=== PATIENT | male | born 1965 | race Caucasian/White ===

== ENCOUNTER → 2018-03-27 16:02 | Outpatient (CLI) | payer OTHER, SELFPAY ==
[2018-03-27 16:34] LABS: Add Manual Diff / Slide Review NO; Basophils Percent Auto 0.5 % (0-2); Eosinophils Percent Auto 0.6 % (2-4); Hematocrit 46.7 % (41-53); Hemoglobin 16.2 g/dL (13.5-17.5); Lymphocytes Percent Auto 39.7 % (25-40); Mean Corpuscular HGB Conc 34.7 % (30-36); Mean Corpuscular Hemoglobin 30.1 PG (26-34); Mean Corpuscular Volume 86.8 fL (80-100); Monocytes Percent Auto 6.6 % (3-14); Neutrophils Absolute Auto 2600 /uL (3000-5900); Neutrophils Percent Auto 52.6 % (50-75); Platelet Count 148 X10^3/uL (150-400); Red Blood Cell Count 5.37 X10^6/uL (4.5-5.9); Red Cell Distribution Width 13.2 % (11.6-14.8); White Blood Cell Count 4.9 X10^3/uL (4.5-11.0)
[2018-03-27 16:44] LABS: Alanine Aminotransferase 57 IU/L (21-72); Albumin 4.3 g/dL (3.5-5.0); Albumin Globulin Ratio 1.4 (1.0-2.8); Alkaline Phosphatase 78 U/L (38-126); Aspartate Aminotransferase 34 IU/L (17-59); BUN Creatinine Ratio 26.7 (6-22); Bilirubin Total 0.6 mg/dL (0.2-1.3); Blood Urea Nitrogen 16 mg/dL (9-20); Calcium 9.1 mg/dL (8.4-10.2); Carbon Dioxide 29 mmol/L (22-32); Chloride 100 mmol/L (98-107); Cholesterol 211 mg/dL (140-199); Estimated Glomerular Filt Rate > 60.0 mL/min (>60); Glucose 269 mg/dL (70-100); HDL Cholesterol 39 mg/dL (40-60); Sodium 138 mmol/L (137-145); Total Protein 7.3 g/dL (6.3-8.2)
[2018-03-27 16:51] LABS: HEMOLYSIS 25 (0-50)
[2018-03-27 16:53] LABS: Triglycerides 589 mg/dL (35-150)
[2018-03-27 18:06] LABS: Thyroid Stimulating Hormone 1.27 uIU/mL (0.47-4.68)
== END ==
PROVIDERS: Visit Provider Internal Medicine
DX: E11.9 Type 2 diabetes mellitus without complications (principal); E78.00 Pure hypercholesterolemia, unspecified
CPT/HCPCS: 36415; 80053; 80061; 83036; 84443; 85025

== ENCOUNTER → 2018-09-10 07:49 | Outpatient (CLI) | payer OTHER, SELFPAY ==
[2018-09-10 08:35] LABS: Alanine Aminotransferase 57 IU/L (21-72); Albumin 4.5 g/dL (3.5-5.0); Albumin Globulin Ratio 1.4 (1.0-2.8); Alkaline Phosphatase 82 U/L (38-126); Aspartate Aminotransferase 34 IU/L (17-59); Bilirubin Total 0.6 mg/dL (0.2-1.3); Blood Urea Nitrogen 15 mg/dL (9-20); Calcium 9.4 mg/dL (8.4-10.2); Carbon Dioxide 31 mmol/L (22-32); Chloride 103 mmol/L (98-107); Estimated Glomerular Filt Rate > 60.0 mL/min (>60); Globulin 3.2 g/dL (1.7-4.1); Glucose 159 mg/dL (70-100); HEMOLYSIS 18 (0-50); Potassium 4.1 mmol/L (3.4-5.1); Sodium 140 mmol/L (137-145); Total Protein 7.7 g/dL (6.3-8.2)
[2018-09-10 08:50] LABS: LDL Cholesterol Direct 79 mg/dL (<100)
[2018-09-10 11:19] LABS: Creatinine Urine Random 77.7 mg/dL
[2018-09-10 11:27] LABS: Microalbumi Creatinin Ratio Ur 7.7 ug/mg CR (<30); Microalbumin Urine Random < 0.6 mg/dL (0-1.6)
== END ==
PROVIDERS: PCP Internal Medicine; Visit Provider Internal Medicine
DX: E11.9 Type 2 diabetes mellitus without complications (principal); E78.1 Pure hyperglyceridemia; I10 Essential (primary) hypertension
CPT/HCPCS: 36415; 80053; 82043; 82570; 83036; 83721

== ENCOUNTER → 2019-04-15 16:33 | Outpatient (CLI) | payer OTHER, SELFPAY ==
[2019-04-15 17:30] LABS: Add Manual Diff / Slide Review NO; Basophils Absolute Auto 0 /uL (0-100); Basophils Percent Auto 0.8 % (0-2); Eosinophils Absolute Auto 0 /uL (0-450); Eosinophils Percent Auto 0.9 % (2-4); Hematocrit 44.3 % (41-53); Hemoglobin 15.1 g/dL (13.5-17.5); Lymphocytes Absolute Auto 1800 /uL (1100-4500); Mean Corpuscular HGB Conc 34.1 % (30-36); Mean Corpuscular Hemoglobin 29.9 PG (26-34); Mean Corpuscular Volume 87.7 fL (80-100); Monocytes Absolute Auto 300 /uL (0-900); Monocytes Percent Auto 6.2 % (3-14); Neutrophils Absolute Auto 2400 /uL (1500-7000); Neutrophils Percent Auto 52.1 % (50-75); Platelet Count 165 X10^3/uL (150-400); Red Blood Cell Count 5.05 X10^6/uL (4.5-5.9); Red Cell Distribution Width 13.5 % (11.6-14.8); White Blood Cell Count 4.5 X10^3/uL (4.5-11.0)
[2019-04-15 17:40] LABS: Hemoglobin A1C% w Est Avg Glu 10.1 % (4.0-6.0)
[2019-04-15 17:51] LABS: Alanine Aminotransferase 34 IU/L (21-72); Albumin Globulin Ratio 1.4 (1.0-2.8); Alkaline Phosphatase 95 U/L (38-126); Aspartate Aminotransferase 24 IU/L (17-59); Bilirubin Total 0.5 mg/dL (0.2-1.3); Blood Urea Nitrogen 15 mg/dL (9-20); Carbon Dioxide 27 mmol/L (22-32); Chloride 98 mmol/L (98-107); Creatine Kinase 67 U/L (55-170); Estimated Glomerular Filt Rate > 60.0 mL/min (>60); Globulin 2.8 g/dL (1.7-4.1); Glucose 390 mg/dL (70-100); HEMOLYSIS 20 (0-50); Sodium 137 mmol/L (137-145); Total Protein 6.8 g/dL (6.3-8.2)
[2019-04-15 17:54] LABS: C-Reactive Protein Quant < 0.5 mg/dL (<1.0)
[2019-04-15 17:55] LABS: Erythrocyte Sedimentation Rate 4 MM/HR (0-15)
[2019-04-15 18:22] LABS: Thyroid Stimulating Hormone 1.63 uIU/mL (0.47-4.68)
== END ==
PROVIDERS: PCP Internal Medicine; Visit Provider Internal Medicine
DX: E11.65 Type 2 diabetes mellitus with hyperglycemia (principal); E78.1 Pure hyperglyceridemia; I10 Essential (primary) hypertension; M79.10 Myalgia, unspecified site; R53.1 Weakness; R63.4 Abnormal weight loss
CPT/HCPCS: 36415; 80053; 82550; 83036; 84439; 84443; 85025; 85651; 86140

== ENCOUNTER → 2019-06-04 20:47 | Outpatient (CLI) | payer OTHER, SELFPAY ==
--- NOTE | 2019-06-04 20:49 | DI.MRI.S_ITS ---
PROCEDURE: MR CERVICAL SPINE WO CON INDICATIONS: Cervical radiculopathy TECHNIQUE: Noncontrast sagittal T1 spin echo and T2 fast spin echo, sagittal STIR, foraminal oblique sagittal T2 fast spin echo, and axial gradient echo or T2 fast spin echo through the cervical spine. COMPARISON: [facility] [place], CR, XR CERVICAL SPINE 2 OR 3 VIEWS, 08/21/2017, 8:40. FINDINGS: Image quality: Excellent. Alignment and Curvature: There is normal bony alignment. Bone Marrow: Marrow demonstrates normal overall signal. Spinal Cord: Visualized spinal cord has normal size and signal. No cerebellar tonsillar herniation. Paraspinous Soft Tissues: No paravertebral masses. Prevertebral soft tissues are normal in thickness. C2-C3: Mild central canal stenosis, eccentric to the left. Prominent bilateral uncovertebral joint hypertrophy. Moderate bilateral foraminal narrowing with flattening of the bilateral C3 nerve root sleeves. C3-C4: Posterior disc bulge. Very prominent left posterior lateral disc plus osteophyte significantly indents on the left ventral aspect of the cord and results in marked left foraminal narrowing and impingement on the left C4 nerve root. Prominent right uncovertebral joint hypertrophy results in severe right foraminal narrowing and impingement on the right C4 nerve root. C4-C5: Mild central canal stenosis. Very prominent left uncovertebral joint hypertrophy results in marked left foraminal narrowing, obliterating the left C5 nerve root in the left foramen. Right uncovertebral joint hypertrophy results in moderate to severe right foraminal narrowing and impingement on the right C5 nerve root. C5-C6: Mild central canal stenosis. Very prominent left uncovertebral joint hypertrophy results in marked left foraminal narrowing and significant impingement on the left C6 nerve root in the foramen. Prominent right uncovertebral joint hypertrophy results in severe right foraminal narrowing and impingement on the right C6 nerve root. C6-C7: Disc bulge. Mild canal stenosis. Left uncovertebral joint hypertrophy results in severe left foraminal narrowing and impingement on the left C6 nerve root. There is right uncovertebral joint hypertrophy with mild right foraminal narrowing. C7-T1: No canal stenosis. Bilateral uncovertebral joint hypertrophy with moderate to severe bilateral foraminal narrowing and indentation on the bilateral C8 nerve root sleeves. IMPRESSION: 1. Extensive cervical spondylytic change. 2. Multilevel canal stenosis, present from C2-C3 through C6-C7, most impressive in the left hemicanal at C3-C4 3. Bilateral uncovertebral joint hypertrophy results in extensive multilevel foraminal narrowing with multilevel bilateral nerve root impingement, as described above, left greater than right. Dictated by: Les Lenz M.D. on 06/07/2019 at 12:57 Approved by: Les Lenz M.D. on 06/07/2019 at 13:15
== END ==
PROVIDERS: PCP Internal Medicine; Visit Provider Physical Medicine & Rehabilitation
DX: M47.22 Other spondylosis with radiculopathy, cervical region (principal); M48.02 Spinal stenosis, cervical region
CPT/HCPCS: 72141

== ENCOUNTER → 2019-07-29 16:56 | Outpatient (CLI) | payer OTHER, SELFPAY ==
[2019-07-29 17:25] LABS: Add Manual Diff / Slide Review NO; Basophils Absolute Auto 0 /uL (0-100); Basophils Percent Auto 0.6 % (0-2); Eosinophils Absolute Auto 0 /uL (0-450); Eosinophils Percent Auto 0.8 % (2-4); Hematocrit 49.1 % (41-53); Hemoglobin 16.9 g/dL (13.5-17.5); Lymphocytes Absolute Auto 2300 /uL (1100-4500); Mean Corpuscular HGB Conc 34.5 % (30-36); Mean Corpuscular Hemoglobin 30.3 PG (26-34); Mean Corpuscular Volume 87.7 fL (80-100); Monocytes Absolute Auto 400 /uL (0-900); Monocytes Percent Auto 6.5 % (3-14); Neutrophils Absolute Auto 2800 /uL (1500-7000); Neutrophils Percent Auto 50.1 % (50-75); Platelet Count 152 X10^3/uL (150-400); Red Blood Cell Count 5.59 X10^6/uL (4.5-5.9); Red Cell Distribution Width 13.4 % (11.6-14.8); White Blood Cell Count 5.6 X10^3/uL (4.5-11.0)
[2019-07-29 17:35] LABS: Blood Urea Nitrogen 18 mg/dL (9-20); Calcium 9.7 mg/dL (8.4-10.2); Carbon Dioxide 28 mmol/L (22-32); Chloride 99 mmol/L (98-107); Estimated Glomerular Filt Rate > 60.0 mL/min (>60); Glucose 278 mg/dL (70-100); HEMOLYSIS 22 (0-50); Sodium 138 mmol/L (137-145)
== END ==
PROVIDERS: PCP Internal Medicine; Visit Provider Neurological Surgery
DX: M48.02 Spinal stenosis, cervical region (principal); M54.12 Radiculopathy, cervical region
CPT/HCPCS: 36415; 80048; 85025

== ENCOUNTER → 2019-09-06 16:35 | Outpatient (CLI) | payer OTHER, SELFPAY ==
--- NOTE | 2019-09-06 | DI.RAD.S_ITS ---
PROCEDURE: XR CERVICAL SPINE 2V OR 3V INDICATIONS: C 3-6 Fusion TECHNIQUE: 2 view(s) of the cervical spine were acquired. COMPARISON: [facility], MR, MR CERVICAL SPINE WO CON, 06/04/2019, 20:51. [facility], , CERVICAL TRANSLAMINAR, 10/03/2017, 8:14. [facility], , CERVICAL SPINE INTERLAMINAR, 03/08/2019, 14:01. FINDINGS: Bones: Anterior fixation hardware is seen at C3-C4, C4-C5, and C5-C6. No findings of hardware failure or hardware loosening are seen. There is straightening of the normal cervical lordosis. No displaced fractures are seen. No suspicious lytic or blastic lesions are seen. Soft tissues: No prevertebral soft tissue swelling. The visualized lung apices are unremarkable. IMPRESSION: Unremarkable fusion hardware. Dictated by: Patricio Colindres M.D. on 09/06/2019 at 18:58 Approved by: Patricio Colindres M.D. on 09/06/2019 at 18:59
== END ==
PROVIDERS: PCP Internal Medicine; Referring Provider Neurological Surgery; Visit Provider Neurological Surgery
DX: Z98.1 Arthrodesis status (principal)
CPT/HCPCS: 72040

== ENCOUNTER 2020-01-12 12:09 | Emergency (ER) | payer OTHER, SELFPAY ==
[2020-01-12 12:18] VITALS: BP 149/87; PULSE 88; RESP 16; TEMP 36.9; O2SAT 99; BMI 31.1
--- NOTE | 2020-01-12 12:47 | ED_ITS ---
HPI - Neuro Symptoms/Deficit General Chief Complaint: Neuro Symptoms/Deficit Stated Complaint: Drooping Face, Numbness, Headache Time Seen by Provider: 01/12/20 12:26 Source: patient and family Mode of arrival: Family Vehicle Limitations: no limitations History of Present Illness HPI Narrative: Patient is a 54-year-old male. Approximately 6 months ago underwent a right-sided anterior cervical diskectomy and plate placement. Since that time he has had a right-sided facial droop. He has followed up with the operative provider who stated that he did not feel it was related to the surgery. They thought that potentially his symptom would improve as time went on. He states that over the past 6 months he has thought that the right-sided facial droop has improved somewhat but certainly was not back to his pre operative normal. He is here to the emergency department today because over the past couple days has noticed some increasing pain on the right side of his face radiating to his right ear and up to his right yazidi. Difficult for him to exactly describe the pain. He does state that it is somewhat sharp. It is not a constant pain. Does seem to come and go. Denies any vision changes. No dental pain. Does report somewhat of a right-sided headache however this does not seem to be associated with the occasional right-sided face pain that he has. Has not tried anything for symptoms prior to arrival. On Anticoagulants: No Related Data Home Medications Medication Instructions Recorded Confirmed acetaminophen 300 mg-codeine 30 mg 1 tab PO Q4-6H PRN 04/15/19 04/15/19 tablet Previous Rx's Medication Instructions Recorded dextroamphetamine-amphetamine 10 10 mg PO DAILY #30 tab 04/03/18 mg tablet insulin glargine 100 unit/mL 70 unit SUBCUT DAILY #3 vial 08/21/18 subcutaneous solution atorvastatin 40 mg tablet 40 mg PO DAILY #90 tab 11/30/18 empagliflozin 25 mg tablet See Rx Instructions .ROUTE 05/06/19 .COMPLEX #90 tab metformin 500 mg tablet 1,000 mg PO BIDCC #360 tab 05/06/19 gabapentin 300 mg capsule 600 mg PO TID #180 cap 05/31/19 prednisone 60 mg PO DAILY 7 Days #21 tab 01/12/20 valacyclovir 1,000 mg PO TID 7 Days #21 tab 01/12/20 Allergies Allergy/AdvReac Type Severity Reaction Status Date / Time lisinopril AdvReac Mild felt Verified 01/12/20 12:24 'weird' Review of Systems Constitutional Constitutional: Denies fatigue, Denies fever(s), Reports headache(s) and Denies weakness Eyes Eyes: Denies blurry vision and Denies change in vision ENT Ears, Nose, Mouth, and Throat: Denies dental pain, Denies dizziness, Reports otalgia, Reports facial pain, Reports headache(s), Reports nasal congestion, Denies sore throat and Denies throat swelling Cardiovascular Cardiovascular: Denies chest pain and Denies dyspnea Respiratory Respiratory: Denies cough and Denies dyspnea Gastrointestinal Gastrointestinal: Denies abdominal pain, Denies nausea and Denies vomiting Genitourinary Genitourinary: Denies dysuria Genitourinary: Denies dysuria Musculoskeletal Musculoskeletal: Denies arthralgias Integumentary/Breasts Skin/Breast: Denies lesions and Denies rash Neurologic Neurologic: Denies behavioral changes, Denies dizziness, Reports headache(s) and Denies weakness Psychiatric Psychiatric: Denies behavioral changes Endocrine Endocrine: Denies fatigue Hematologic/Lymphatic Hematologic/Lymphatic: Denies easy bleeding and Denies easy bruising Allergic/Immunologic Allergic/Immunologic: Denies urticaria and Denies throat swelling Patient History Medical History Attention deficit disorder (ADD) in adult (Chronic 09/30/11) Benign essential hypertension (Chronic) Cervical radiculopathy (Acute) Cervical spine disease (Resolved 2002) Cervical stenosis of spinal canal (Acute) Degenerative joint disease (Chronic 09/30/11) Hypercholesteremia (Chronic) Hypertriglyceridemia (Chronic) Hypogonadism in male (Chronic 12/30/12) Sleep apnea in adult (Chronic) Type 2 diabetes mellitus (Chronic 09/30/11) Social History Smoking Status: Never smoker Smoking Status: Never smoker alcohol intake frequency: 0-2 drinks per day Substance Use Type: does not use Exam Initial Vital Signs Initial Vital Signs: Vital Signs Temperature 98.4 F 01/12/20 12:18 Pulse Rate 88 01/12/20 12:18 Respiratory Rate 16 01/12/20 12:18 Blood Pressure 149/87 H 01/12/20 12:18 Pulse Oximetry 99 01/12/20 12:18 Const General: cooperative, comfortable and well developed Limitations: mental status not altered HENMT Head: normal to inspection and normocephalic Ears: TM's normal bilaterally Nose: external nose normal Face and sinus: sinuses nontender, face asymmetric, no lacerations, no sinus tenderness and no tenderness Mouth: oral mucosae normal and tongue normal Teeth and gingiva: dentition normal Throat: posterior oropharynx normal Eyes Sclera: scleral abnormality bilaterally scleral injection Pupils: PERRL EOM: EOM intact bilaterally Neck Other: Right-sided surgical scar consistent with his stated surgical history Resp Effort & Inspection: normal respiratory effort Auscultation: clear to auscultation bilaterally Cardio Rate: regular rate Rhythm: regular rhythm GI Inspection: non-distended Palpation: soft Skin Lesions: no lesions Rashes: no rashes Neuro General: patient alert, patient awake and patient oriented x3 Cognition: normal cognition Speech: speech normal Gait: normal gait Motor: muscle tone normal throughout Sensory Exam: no sensory deficits noted Coordination: soobzd-gl-esow test normal Other: Patient does have an obvious right-sided facial droop most noted around his mouth. According to the patient's who is at bedside this is not new for him however she does think that it potentially is worse than what has been in the past. He also has a obvious deficit with being able to raise his right forehead and also does have some decreased ability to close his right eye compared to the left side. He reports no sensation differences between right left side of his face. No sensation differences of his tongue. Rest of his cranial nerves unremarkable. Extrem General: capillary refill normal Psych Appearance: grossly normal and well kempt Scores GCS Aurora coma scale eye opening: Spontaneous Mitch coma scale verbal response: Orientated Mitch coma scale motor response: Obey commands Aurora coma scale total score: 15 Course Orders Ordered: ED Orders 01/12/20 12:47 CT head/brain wo con Stat Vital Signs Vital signs: Vital Signs - 8 hr 01/12/20 12:18 01/12/20 13:00 01/12/20 13:30 Temperature 98.4 F Pulse Rate 88 76 83 Respiratory Rate 16 16 16 Blood Pressure 149/87 H Blood Pressure [Right Arm] 139/88 124/74 Pulse Oximetry 99 97 99 01/12/20 14:35 01/12/20 14:42 Temperature Pulse Rate 82 82 Respiratory Rate 16 16 Blood Pressure 124/83 Blood Pressure [Right Arm] 124/83 Pulse Oximetry 98 98 [facility] - Neuro Symptoms/Deficit Imaging Data CT scan - head: Radiologist's Impression: [address] [address] [address] Scan Report Signed Patient: Coy Fleming [facility]#: [id number] : 1965Acct:[id number] Age/Sex: 54 / MDate of Service: 01/12/20 Loc: ED Accession Number: [id number] Procedure: CT head/brain wo con Ordering Provider: Holland Duran D.O. PROCEDURE: CT HEAD/BRAIN WO CON INDICATIONS: Right-sided facial droop TECHNIQUE: Noncontrast 4.5 mm thick angled axial sections acquired from the foramen magnum to the vertex, with coronal and sagittal reformats. For radiation dose reduction, the following was used: automated exposure control, adjustment of mA and/or kV according to patient size. COMPARISON: None. FINDINGS: Image quality: Diagnostic. CSF spaces: Basal cisterns are patent. No extra-axial fluid collections. Ventricles are normal in size and shape. Brain: No midline shift. No intracranial masses or hemorrhage. Conteh-white matter interface is normal. Skull and face: Calvarium and visualized facial bones are intact, without suspicious lesions. Sinuses: Visualized sinuses and mastoids are clear. IMPRESSION: Negative head CT. No acute intracranial hemorrhage. Dictated by: Catarino Rivera M.D. on 01/12/2020 at 12:08 Approved by: Catarino Rivera M.D. on 01/12/2020 at 12:15 [facility] Narrative Medical decision making narrative: I am not 100% sure the exact etiology of his symptoms. His head CT is unremarkable. I do have a low suspicion that his presenting symptoms today are in direct relation to his surgery 6 months ago. I have low suspicion for a vascular injury related to the surgery. He has no neck pain. Is also difficult to distinguish what is new and what is old. He does have a right-sided facial droop for the past 6 months however his states that potentially it is worse over the past couple days. He has no skin changes on the side of his face concerning for zoster. He does have physical exam findings that could really well be consistent with Gonzalez's palsy especially given the involvement of the tire right side of his face. He does have bilateral scleral injection however no change in vision. Patient was concerned that potentially this was allergies which could be the cause of his scleral injection however would not cause his neurologic symptoms. He has no symptoms in his upper and lower extremities. I have low suspicion for temporal arteritis as he has no tenderness over his right temporal area. His exam is also not consistent with trigeminal neuralgia. Exam is also not consistent with a dental abscess. I feel that given his presenting symptoms today that the most likely cause is Gonzalez's palsy. Will treat him with prednisone and acyclovir. I did inform him that despite this treatment if his symptoms worsen he should return to the emergency department. We did discuss that he could use [id number] antihistamines if he would like. We also discussed the importance of keeping his eye closed while he sleeps at night and if he needs to tape his eye shut he might have to do this. Will have him follow-up with his primary doctor. He expressed understanding and agreement. Discharge Plan Departure Patient Disposition: Home Clinical Impression: Right-sided Gonzalez's palsy Discharge Date/Time: 01/12/20 14:43 Instructions: DI for Gonzalez's Palsy Activity Restrictions/Additional Instructions: Take the medications as directed. They were electronically transmitted to [facility]. If her symptoms worsen or you develop any other new symptoms like we discussed please return to the emergency department. Contact your primary provider for follow-up. Prescriptions: New prednisone 20 mg tablet 60 mg PO DAILY 7 Days Qty: 21 RF: 0 valacyclovir 1 gram tablet 1,000 mg PO TID 7 Days Qty: 21 RF: 0 No Action atorvastatin 40 mg tablet 40 mg PO DAILY Qty: 90 RF: 1 empagliflozin [Jardiance] 25 mg tablet See Rx Instructions .ROUTE .COMPLEX Qty: 90 RF: 1 metformin [Glucophage] 500 mg tablet 1,000 mg PO BIDCC Qty: 360 RF: 3 dextroamphetamine-amphetamine [Adderall] 10 mg tablet 10 mg PO DAILY Qty: 30 RF: 0 insulin glargine [Lantus U-100 Insulin] 100 unit/mL solution 70 unit SUBCUT DAILY Qty: 3 RF: 3 acetaminophen-codeine 300-30 mg tablet 1 tab PO Q4-6H PRNRF: 0 gabapentin 300 mg capsule 600 mg PO TID Qty: 180 RF: 1 Referrals: Jonny Reynoso MD [Primary Care Provider] -
[2020-01-12 13:00] VITALS: BP 139/88; PULSE 76; RESP 16; O2SAT 97
[2020-01-12 13:30] VITALS: BP 124/74; PULSE 83; RESP 16; O2SAT 99
[2020-01-12 14:35] VITALS: BP 124/83; PULSE 82; RESP 16; O2SAT 98
[2020-01-12 14:42] VITALS: BP 124/83; PULSE 82; RESP 16; O2SAT 98
== END 2020-01-12 14:43 | disposition home or self-care (01) ==
PROVIDERS: Emergency Provider Emergency Medicine; PCP Internal Medicine
DX: G51.0 Bell's palsy (principal)
CPT/HCPCS: 70450; 99284

== ENCOUNTER → 2020-10-03 16:41 | Outpatient (CLI) | payer OTHER, SELFPAY ==
[2020-10-03 17:35] LABS: Bacteria Urine None Seen; RBC Urine None Seen (0-5/HPF); WBC Urine None Seen (0-5/HPF)
[2020-10-03 18:12] LABS: Appearance Urine UA CLEAR; Bilirubin Urine UA NEGATIVE (NEGATIVE); Color Urine UA YELLOW; Glucose Urine UA 3+ g/dL (Negative); Ketones Urine UA NEGATIVE (NEGATIVE); Leukocyte Esterase Urine UA NEGATIVE (NEGATIVE); Nitrite Urine UA NEGATIVE (Negative); Occult Blood Urine UA NEGATIVE (Negative); Protein Urine UA NEGATIVE (Negative); Specific Gravity Urine UA 1.015 (1.000-1.035); Urobilinogen Urine UA 0.2 E.U./dL (0.2)
[2020-10-03 18:16] LABS: Urine Comments Microscopic Normal
[2020-10-03 18:40] LABS: Add Manual Diff / Slide Review NO; Basophils Absolute Auto 0 /uL (0-100); Basophils Percent Auto 0.7 % (0-2); Eosinophils Absolute Auto 100 /uL (0-450); Eosinophils Percent Auto 1.1 % (2-4); Hematocrit 48.6 % (41-53); Hemoglobin 16.3 g/dL (13.5-17.5); Lymphocytes Absolute Auto 2500 /uL (1100-4500); Lymphocytes Percent Auto 47.5 % (25-40); Mean Corpuscular HGB Conc 33.6 % (30-36); Mean Corpuscular Hemoglobin 29.6 PG (26-34); Mean Corpuscular Volume 88.2 fL (80-100); Monocytes Absolute Auto 300 /uL (0-900); Monocytes Percent Auto 6.3 % (3-14); Neutrophils Absolute Auto 2300 /uL (1500-7000); Neutrophils Percent Auto 44.4 % (50-75); Platelet Count 154 X10^3/uL (150-400); Red Blood Cell Count 5.51 X10^6/uL (4.5-5.9); Red Cell Distribution Width 13.3 % (11.6-14.8); White Blood Cell Count 5.2 X10^3/uL (4.5-11.0)
[2020-10-03 19:08] LABS: Alanine Aminotransferase 33 IU/L (<50); Albumin 4.4 g/dL (3.5-5.0); Albumin Globulin Ratio 1.8 (1.0-2.8); Alkaline Phosphatase 79 U/L (38-126); Aspartate Aminotransferase 28 IU/L (17-59); BUN Creatinine Ratio 24.2 (6-22); Bilirubin Total 0.4 mg/dL (0.2-1.3); Blood Urea Nitrogen 15 mg/dL (9-20); C-Reactive Protein Quant < 0.5 mg/dL (<1.0); Calcium 9.5 mg/dL (8.4-10.2); Carbon Dioxide 30 mmol/L (22-32); Chloride 99 mmol/L (98-107); Estimated Glomerular Filt Rate > 60.0 mL/min (>60); Globulin 2.5 g/dL (1.7-4.1); Glucose 172 mg/dL (70-100); HEMOLYSIS < 15 (0-50); Sodium 136 mmol/L (137-145); Total Protein 6.9 g/dL (6.3-8.2)
[2020-10-03 20:05] LABS: Erythrocyte Sedimentation Rate 1 MM/HR (0-15)
== END ==
PROVIDERS: PCP Internal Medicine; Referring Provider Internal Medicine; Visit Provider Internal Medicine
DX: E11.65 Type 2 diabetes mellitus with hyperglycemia (principal); I10 Essential (primary) hypertension; M31.6 Other giant cell arteritis; R10.9 Unspecified abdominal pain
CPT/HCPCS: 36415; 80053; 81001; 85025; 85651; 86140

== ENCOUNTER → 2021-04-12 16:40 | Outpatient (CLI) | payer OTHER, SELFPAY ==
--- NOTE | 2021-04-12 16:42 | DI.MRI.S_ITS ---
PROCEDURE: MR HEAD/BRAIN WO/W CON INDICATIONS: Foot drop, right foot TECHNIQUE: Noncontrast axial T1 spin echo, axial T2 fast spin echo, sagittal and axial FLAIR, coronal T2 fast spin echo, axial gradient echo, axial diffusion and ADC through the brain. After the administration of contrast, axial and coronal 3D VIBE or T1 spin echo with fat saturation through the brain. COMPARISON: None. FINDINGS: Image quality: Excellent. CSF Spaces: Basal cisterns are patent. No extra-axial fluid collections. Ventricles are normal in size and shape. Brain: No midline shift. No intracranial bleeds or masses. No abnormal intracranial enhancement. The brainstem appears normal. Diffusion-weighted images demonstrate no acute ischemic insults. No chronic ischemic insults. Normal intravascular flow voids are present. Skull and face: Calvarial marrow is normal in signal. Orbits appear normal. Sinuses: Sinuses and mastoids appear clear. IMPRESSION: No findings of acute or subacute infarction can be seen. No imaging explanation is found for this patient's presenting symptoms. No masses or abnormal enhancement can be seen. Dictated by: Patricio Colindres M.D. on 04/12/2021 at 17:07 Approved by: Patricio Colindres M.D. on 04/12/2021 at 17:09
== END ==
PROVIDERS: PCP Internal Medicine; Referring Provider Internal Medicine; Visit Provider Internal Medicine
DX: G45.9 Transient cerebral ischemic attack, unspecified (principal); M21.371 Foot drop, right foot
CPT/HCPCS: 70553

== ENCOUNTER → 2021-07-31 13:34 | Outpatient (CLI) | payer OTHER, SELFPAY ==
[2021-07-31 15:25] LABS: COVID19 -Nasal RAPID POSITIVE (Negative)
== END ==
PROVIDERS: PCP Internal Medicine; Referring Provider Physician Assistant; Visit Provider Physician Assistant
DX: Z20.822 Contact with and (suspected) exposure to COVID-19 (principal)
CPT/HCPCS: 87635

== ENCOUNTER 2023-07-15 10:03 | Day surgery (SDC) | payer OTHER, SELFPAY ==
[2023-07-15] MEDS: LACTATED RINGERS 1,000 ML 42 ML IV (10:15)
[2023-07-15 10:29] VITALS: BP 131/82; PULSE 106; RESP 14; TEMP 36.3; O2SAT 97; BMI 31.3
== END 2023-07-15 10:05 | disposition home or self-care (01) ==
PROVIDERS: PCP Internal Medicine; Referring Provider Surgery; Visit Provider Surgery
DX: Z12.11 Encounter for screening for malignant neoplasm of colon (principal); Z53.09 Procedure and treatment not carried out because of other contraindication
CPT/HCPCS: 45378

== ENCOUNTER 2023-08-01 11:21 | Day surgery (SDC) | payer OTHER, SELFPAY ==
--- NOTE | 2023-08-01 | PATH_ITS ---
[facility] Accession Number: [id number] No. of containers..02 Tissue . 01 Material submitted: . PART A: colon - ASCENDING COLON PART B: colon - SIGMOID . 01 Diagnosis: A. Ascending Colon Polyps: Tubular adenoma and colonic mucosa with prominent benign lymphoid aggregates. Additional step sections examined. . B. Sigmoid Colon Polyp, Biopsy: Hyperplastic polyp. MRV 08/12/2023 1458 Local . 01 Electronically signed: . Nguyễn Breen MD, PhD, Pathologist NPI- [id number] . 01 Gross description: . Part A: ASCENDING COLON: Received in formalin is multiple fragment(s) of vaughn, soft tissue measuring 1.0 x 0.5 x 0.1 cm in aggregate submitted entirely in 1 cassette(s) Part B: SIGMOID : Received in formalin is 1 fragment(s) of vaughn, soft tissue measuring 0.4 x 0.3 x 0.1 cm submitted entirely in 1 cassette(s) /AAY 08/06/2023 0056 Local . 01 Pathologist provided ICD-10: D12.2 . 01 CPT . 757747, 324373 Specimen Comment: A courtesy copy of this report has been sent to [phone] Performed at: 01 [facility] [address] [facility] [address] [place] [address], [place], [place] [id number] MD Inocente Robertson MD Phone: [phone]
[2023-08-01 11:45] VITALS: BP 134/89; PULSE 86; RESP 16; TEMP 36.2; O2SAT 100; BMI 31.6
[2023-08-01] MEDS: LACTATED RINGERS 1,000 ML 150 ML IV (11:49)
--- NOTE | 2023-08-01 12:27 | P.HP_ITS ---
History of Present Illness History of Present Illness Date Patient Seen: 08/01/23 Time Patient Seen: 12:27 Chief complaint: Colonoscopy Narrative: 58-year-old man here for screening colonoscopy. Last colonoscopy approximately 10 years ago. No family history of intestinal malignancy. No abdominal concerns today. [facility] Medical History Cervical stenosis of spinal canal Cervical radiculopathy Sleep apnea in adult Hypertriglyceridemia Hypogonadism in male (12/30/12) Degenerative joint disease (09/30/11) Benign essential hypertension Hypercholesteremia Cervical spine disease (2002) Attention deficit disorder (ADD) in adult (09/30/11) Type 2 diabetes mellitus (09/30/11) Social History household members: spouse Smoking Status: Never smoker alcohol intake: current Meds Home Medications and Allergies Home Medications Medication Instructions Recorded Confirmed Type metformin 500 mg tablet 1,000 mg (2 x 500 mg) PO BIDCC 05/06/19 08/01/23 Rx (Glucophage) #360 tabs insulin NPH isoph U-100 human 100 70 unit SUBCUT DAILY 05/14/22 08/01/23 History unit/mL (3 mL) subcutaneous pen (Humulin N NPH U-100 Insulin KwikPen) semaglutide 1 mg/dose (4 mg/3 mL) 1 mg SUBCUT QWEEK 11/21/22 08/01/23 History subcutaneous pen injector (Ozempic) acetaminophen 500 mg tablet 1,000 mg PO PRN PRN Pain (Scale 07/15/23 08/01/23 History Score 4-6) ibuprofen 600 mg tablet 600 mg PO PRN PRN Pain (Scale 07/15/23 08/01/23 History Score 4-6) methocarbamol 500 mg tablet 500 mg PO PRN PRN Pain (Scale 07/15/23 08/01/23 History Score 4-6) rosuvastatin 10 mg tablet 10 mg PO ONCE PM 07/15/23 08/01/23 History Allergies Allergy/AdvReac Type Severity Reaction Status Date / Time No Known Drug Allergies Allergy Verified 08/01/23 11:42 Exam Vital Signs (past 8 hours): - 08/01/23 11:45 Temperature 97.1 F L Pulse Rate 86 Respiratory Rate 16 Blood Pressure 134/89 Pulse Oximetry 100 Oxygen Delivery Method Room Air Oxygen Delivery Method Room Air Narrative Exam Narrative: General adult man alert oriented no acute distress Chest nonlabored respiration Extremities warm well perfused Assessment & Plan Assessment & Plan narrative: The patient requires colorectal screening and colonoscopy is recommended. Technical details were discussed. Risks, benefits, alternatives explained. Risks including but not limited to myocardial infarction, aspiration, bleeding, pain, missed lesion, incomplete examination, need for further radiographic studies, colonic perforation, and need for major abdominal surgery were discussed. All questions were answered to their satisfaction, and they are in agreement with this plan.
[2023-08-01 12:55] VITALS: BP 120/78; PULSE 83; RESP 17; TEMP 36.4; O2SAT 95
--- NOTE | 2023-08-01 12:58 | P.OP.COLON_ITS ---
Operative Date/Time/Diagnoses Date of procedure: 08/01/23 Time of procedure: 12:58 Pre-op diagnosis: Colorectal screening Post-op diagnosis: other (Colonic polyps x4) Procedure & Clinicians Study performed: Colonoscopy and polypectomy Same procedure as scheduled: Yes Indications: 58-year-old man here for screening colonoscopy Surgeon: Sundeep Zhao Procedure Notes Procedure in detail: The history and physical was performed/updated and the patient is ASA class is 2. The procedure was discussed in detail with the patient. Potential risks complications including infection, bleeding, missed diagnosis, perforation, need for surgery, and were explained. Their questions were answered and informed consent was obtained. Patient was brought to the procedure room and placed standard monitoring equipment. The patient's vital signs were monitored continuously throughout the entire procedure. Prior to starting time-out was performed. The patient was placed in the left lateral recumbent position. Procedural sedation was administ ered by anesthesia. Examination began with a thorough inspection of the perianal area there was no evidence of fissures, fistulae, external hemorrhoids or cutaneous malignancy. The colonoscopy scope was then placed into the anal canal and was advanced to the cecum, which was identified by the ileocecal valve, the appendiceal orifice and the confluence of the taenia. The scope was then slowly withdrawn examining colon thoroughly in all directions, irrigating it of any residual stool. The scope was retroflexed within the rectum The patient tolerated the procedure well. They will be discharged once criteria are met. The prep was of good/excellent quality. The withdrawl time was 7 minutes. FINDINGS * Ascending colon-1-3 mm polyps x3 removed with biopsy forceps * Sigmoid colon-3 mm polyp removed with biopsy forceps Specimen(s): other (Ascending colon polyps, sigmoid polyp) Impression: Colonic polyp x4 Post-procedure Plan for aftercare: Follow-up is dependent on pathology findings. Disposition: same day surgery
[2023-08-01 13:00] VITALS: BP 120/77; PULSE 82; RESP 13; O2SAT 96
[2023-08-01 13:05] VITALS: BP 110/76; PULSE 83; RESP 13; O2SAT 98
[2023-08-01 13:20] VITALS: BP 114/77; PULSE 82; RESP 12; TEMP 37.1; O2SAT 98
== END 2023-08-01 13:20 | disposition home or self-care (01) ==
PROVIDERS: PCP Internal Medicine; Referring Provider Surgery; Visit Provider Surgery
PROC: 0DJD8ZZ Inspection of Lower Intestinal Tract, Via Natural or Artificial Opening Endoscopic (ICD-10-PCS; CPT 45378; principal; 2023-08-01 12:30)
DX: Z12.11 Encounter for screening for malignant neoplasm of colon (principal); D12.2 Benign neoplasm of ascending colon; K63.5 Polyp of colon
CPT/HCPCS: 45380; J2704

== ENCOUNTER → 2024-05-25 11:53 | Outpatient (CLI) | payer OTHER, SELFPAY ==
[2024-05-25 13:14] LABS: Alanine Aminotransferase 51 IU/L (<50); Albumin 4.4 g/dL (3.5-5.0); Albumin Globulin Ratio 1.6 (1.0-2.8); Alkaline Phosphatase 88 U/L (38-126); Aspartate Aminotransferase 35 IU/L (17-59); Bilirubin Total 0.6 mg/dL (0.2-1.3); Blood Urea Nitrogen 18 mg/dL (9-20); Calcium 9.4 mg/dL (8.4-10.2); Carbon Dioxide 29 mmol/L (22-32); Chloride 103 mmol/L (98-107); Estimated Glomerular Filt Rate > 60 mL/min (>60); Globulin 2.7 g/dL (1.7-4.1); Glucose 88 mg/dL (70-100); HEMOLYSIS < 15 (0-50); Potassium 4.1 mmol/L (3.4-5.1); Sodium 139 mmol/L (137-145); Total Protein 7.1 g/dL (6.3-8.2)
[2024-05-25 13:26] LABS: Appearance Urine UA CLEAR; Bilirubin Urine UA NEGATIVE (NEGATIVE); Color Urine UA YELLOW; Glucose Urine UA 3+ g/dL (Negative); Ketones Urine UA NEGATIVE (NEGATIVE); Leukocyte Esterase Urine UA NEGATIVE (NEGATIVE); Nitrite Urine UA NEGATIVE (Negative); Occult Blood Urine UA NEGATIVE (Negative); Protein Urine UA NEGATIVE (Negative); Specific Gravity Urine UA 1.025 (1.000-1.035); Urobilinogen Urine UA 0.2 E.U./dL (0.2)
[2024-05-25 13:51] LABS: Bacteria Urine None Seen; RBC Urine None Seen (0-5/HPF); Urine Volume 10mL (spun); WBC Urine None Seen (0-5/HPF)
[2024-05-25 13:52] LABS: Culture Indicated Urine Cult Not Indicated; Squamous Epithelial Cell Urine 0-1 /HPF (0-5/HPF)
== END ==
PROVIDERS: PCP Internal Medicine; Referring Provider Internal Medicine; Visit Provider Internal Medicine
DX: R10.9 Unspecified abdominal pain (principal); N20.0 Calculus of kidney
CPT/HCPCS: 36415; 80053; 81001

== ENCOUNTER → 2024-06-01 15:43 | Outpatient (CLI) | payer OTHER, SELFPAY ==
--- NOTE | 2024-06-01 15:45 | DI.CT.S_ITS ---
PROCEDURE: CT IVP A/P W/WO INDICATIONS: left flank pain TECHNIQUE: Optional 5 mm thick noncontrast images acquired from the diaphragm to the symphysis pubis. After the administration of intravenous contrast, 5 mm thick images acquired from the diaphragm to the symphysis pubis after a 10-minute delay. 2 mm thick coronal and sagittal reformats were then performed of the kidneys and ureters. For radiation dose reduction, the following was used: automated exposure control, adjustment of mA and/or kV according to patient size. COMPARISON: None. FINDINGS: Image quality: Diagnostic. Kidneys and Ureters: Both kidneys are normal in size, without hydronephrosis or nephrolithiasis. No perinephric fat stranding. There is normal bilateral renal enhancement. Renal calyces appear normal in morphology when filled with contrast. Opacified portions of both ureters demonstrate normal caliber Bladder: Bladder wall thickness is normal. No calcified bladder stones. OTHER: Lower chest: Unremarkable. Liver: No solid mass. Gallbladder: No radiopaque gallstones or wall thickening. Biliary ducts: No biliary dilation. Pancreas: No ductal dilation. Spleen: Size is within normal limits. Adrenal Glands: No adrenal nodules. Stomach and Bowel: Normal colonic caliber, without significant wall thickening. Peritoneum: No abnormal intraperitoneal fluid. No free air. Ventral Wall: No hernia. Abdominal Nodes: No retroperitoneal or mesenteric adenopathy by size criteria. Vessels: Aorta and inferior vena cava are normal in size. PELVIS: Pelvic Organs: [id number] prostatomegaly.. Pelvic Nodes: No enlarged lymph nodes. Miscellaneous: No inguinal hernias are seen. Bones: No aggressive osseous abnormality. Lumbar degenerative change. Findings include anterolisthesis of L3-L4 with resultant moderate to severe bilateral foraminal narrowing and bilateral L3 nerve root impingement. IMPRESSION: 1. No renal stones, ureteral stones, hydronephrosis, or findings suspicious for malignancy. 2. The no acute abdominal process. 3. Note made of lumbar degenerative change with bilateral foraminal L3 nerve root impingement at L3-L4. Dictated by: Les Lenz M.D. on 06/01/2024 at 16:37 Approved by: Les Lenz M.D. on 06/01/2024 at 16:55
== END ==
PROVIDERS: PCP Internal Medicine; Referring Provider Internal Medicine; Visit Provider Internal Medicine
DX: N20.0 Calculus of kidney (principal); R10.9 Unspecified abdominal pain; M47.816 Spondylosis without myelopathy or radiculopathy, lumbar region; N40.0 Benign prostatic hyperplasia without lower urinary tract symptoms; M43.16 Spondylolisthesis, lumbar region; M48.061 Spinal stenosis, lumbar region without neurogenic claudication
CPT/HCPCS: 74178; Q9967

== ENCOUNTER → 2024-10-16 08:06 | Outpatient (CLI) | payer OTHER, SELFPAY ==
[2024-10-16 10:22] LABS: Testosterone 285 ng/dL (71.8-623)
== END ==
PROVIDERS: PCP Internal Medicine; Referring Provider Urology; Visit Provider Urology
DX: E29.1 Testicular hypofunction (principal); N52.9 Male erectile dysfunction, unspecified; N40.1 Benign prostatic hyperplasia with lower urinary tract symptoms
CPT/HCPCS: 36415; 84153; 84403

== ENCOUNTER → 2024-12-31 07:05 | Outpatient (CLI) | payer OTHER, SELFPAY ==
[2024-12-31 08:50] LABS: Hemoglobin A1C% w Est Avg Glu 6.4 % (4.0-6.0)
[2024-12-31 08:51] LABS: Microalbumin Urine Random < 0.6 mg/dL (0-1.6)
[2024-12-31 08:54] LABS: Albumin 4.1 g/dL (3.5-5.0); BUN Creatinine Ratio 27.1 (6-22); Blood Urea Nitrogen 16 mg/dL (9-20); Calcium 9.3 mg/dL (8.4-10.2); Carbon Dioxide 29 mmol/L (22-32); Chloride 105 mmol/L (98-107); Cholesterol 172 mg/dL (140-199); Estimated Glomerular Filt Rate > 60 mL/min (>60); Glucose 122 mg/dL (70-99); HDL Cholesterol 37 mg/dL (40-60); HEMOLYSIS < 15 (0-50); LDL Cholesterol Calculated 65 mg/dL (<100); Phosphorous 3.6 mg/dL (2.5-4.5); Potassium 4.3 mmol/L (3.4-5.1); Sodium 140 mmol/L (137-145); Triglycerides 348 mg/dL (35-150)
[2024-12-31 10:23] LABS: Luteinizing Hormone 3.89 mIU/mL
[2025-01-08 17:08] LABS: Testosterone, Total 245.7 ng/dL (264.0-916.0); Testosterone,Free 4.2 pg/mL (7.2-24.0)
== END ==
PROVIDERS: PCP Internal Medicine; Referring Provider Urology; Visit Provider Urology
DX: E11.69 Type 2 diabetes mellitus with other specified complication (principal); H91.90 Unspecified hearing loss, unspecified ear
CPT/HCPCS: 36415; 80061; 80069; 82043; 82570; 83002; 83036; 84146; 84402; 84403

== ENCOUNTER → 2025-05-20 06:55 | Outpatient (CLI) | payer OTHER, SELFPAY ==
[2025-05-20 08:37] LABS: Hemoglobin A1C% w Est Avg Glu 7.2 % (4.0-6.0)
[2025-05-20 08:42] LABS: Albumin 4.1 g/dL (3.5-5.0); Blood Urea Nitrogen 19 mg/dL (9-20); Calcium 9.2 mg/dL (8.4-10.2); Carbon Dioxide 28 mmol/L (22-32); Chloride 106 mmol/L (98-107); Cholesterol 190 mg/dL (140-199); Estimated Glomerular Filt Rate > 60 mL/min (>60); Glucose 97 mg/dL (70-99); HDL Cholesterol 41 mg/dL (40-60); HEMOLYSIS < 15 (0-50); Phosphorous 4.0 mg/dL (2.5-4.5); Potassium 4.2 mmol/L (3.4-5.1); Sodium 142 mmol/L (137-145); Triglycerides 220 mg/dL (35-150)
[2025-05-20 09:10] LABS: Microalbumi Creatinin Ratio Ur 7.0 ug/mg CR (<30)
== END ==
PROVIDERS: PCP Internal Medicine; Referring Provider Student in an Organized Health Care Education/Training Program; Visit Provider Student in an Organized Health Care Education/Training Program
DX: E11.69 Type 2 diabetes mellitus with other specified complication (principal); H91.90 Unspecified hearing loss, unspecified ear
CPT/HCPCS: 36415; 80061; 80069; 82043; 82570; 83036